=== PATIENT | female | born 2000 | race Asian ===

== ENCOUNTER 2019-08-10 11:21 | Emergency (ER) | payer MEDICAID, SELFPAY ==
[~2019-08-10] VITALS: Ht 167.6 cm; Wt 77.6 kg
[2019-08-10 11:29] VITALS: Ht 167.6 cm; Wt 77.6 kg
[2019-08-10 12:42] LABS: BASOPHIL % 0.7 % (0-2); PLATELET COUNT 319 x10^3mcL (130-400); RED CELL DISTRIBUTION WIDTH 12.6 % (11.5-14.5)
[2019-08-10 12:44] LABS: CALCIUM 9.6 mg/dL (8.5-10.1); CARBON DIOXIDE 28.2 mmol/L (21-32); CHLORIDE SERUM 103 mmol/L (98-107); CREATININE SERUM 0.6 mg/dL (0.6-1.0); GFR1 > 60 mL/min; GLUCOSE SERUM 90 mg/dL (74-106); POTASSIUM SERUM 3.8 mmol/L (3.5-5.1); SODIUM SERUM 140 mmol/L (136-145)
[2019-08-10 12:49] LABS: ALBUMIN 3.9 g/dL (3.4-5.0); ALKALINE PHOSPHATASE 77 U/L (46-116); ALT/SGPT 16 U/L (14-59); AST/SGOT 9 U/L (15-37); BILIRUBIN TOTAL 0.38 mg/dL (0.20-1.00); TOTAL PROTEIN, SERUM 7.4 g/dL (6.4-8.2)
[2019-08-10 13:08] VITALS: BP 104/71
== END 2019-08-10 13:08 | disposition home or self-care (01) ==
LOC: ED 11:21
PROVIDERS: Emergency Medicine
DX: J18.9 Pneumonia, unspecified organism (principal); R10.816 Epigastric abdominal tenderness
CPT/HCPCS: 36415; 87804; Q0092